=== PATIENT | female | born 1950 | race Caucasian/White ===

== ENCOUNTER → 2016-12-12 | Outpatient (CLI) | payer BC ==
[~2016-12-12] MED LIST: NAPR-1169 PO; TRAMADOL PO
--- NOTE | 2016-12-12 15:18 | MAMMOGRAPHY REPORT ---
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 However, the biopsy marker clip did not align with the original asymmetry in question. TECHNIQUE: Right breast tomosynthesis in addition to standard 2D mammography was performed. Current study was also evaluated with a Computer Aided Detection (CAD) system. COMPARISON: Comparison is made to exams dated: 06/27/2016 ultrasound biopsy, 06/27/2016 mammogram, 06/13/2016 mammogram, 05/24/2016 mammogram, 06/13/2016 ultrasound, and 05/21/2015 mammogram - [facility]. BREAST COMPOSITION: There are scattered areas of fibroglandular density in the right breast. FINDINGS: There is a ribbon shaped metallic biopsy marker in the upper outer posterior right breast. The nodular asymmetry in the lateral posterior right breast, within the retropatellar fat is less prominent comparing to the 05/24/2016 mammogram. Currently, the appearance of the less prominent as ymmetry is very similar to the 2012 mammogram, suggesting benignity. No new suspicious mass, luis ectural distortion or cluster of microcalcifications is seen. Would recommend follow-up at time of next annual screening mammogram (2016). IMPRESSION: ACR BI-RADS CATEGORY 2: BENIGN Decreased prominence of an asymmetry in the lateral, posterior right breast, which appears very ancho lar to the 2012 mammogram. With nearly 5 years of stability this confirms benignity. There is no m ammographic evidence of malignancy in the right breast. Return to annual mammogram screening schedul e is recommended. The patient has been verbally notified of the results. Approximately 10% of breast cancers are not detected with mammography. A negative mammographic repor t should not delay biopsy if a clinically suggestive mass is present. Ayse Higginbotham M.D. ay/:12/12/2016 09:56:48 Instrument And Control Service Person: Natasha ROSENBERG(Tu)(Tana), [facility] letter sent: Normal 1/2 BI-RADS Code: ACR BI-RADS Category 2: Benign
== END | disposition home or self-care (01) ==
LOC: C.MAMM 08:44
PROVIDERS: ATTEND Family Medicine
DX: Z09 Encounter for follow-up examination after completed treatment for conditions other than malignant neoplasm (principal); R92.8 Other abnormal and inconclusive findings on diagnostic imaging of breast

== ENCOUNTER → 2017-05-30 | Outpatient (CLI) | payer BC ==
--- NOTE | 2017-05-31 12:30 | MAMMOGRAPHY REPORT ---
BILATERAL DIGITAL SCREENING MAMMOGRAM TOMOSYNTHESIS WITH CAD: 05/30/2017 CLINICAL HISTORY: Routine screening. Patient has no complaints. TECHNIQUE: Breast tomosynthesis in addition to standard 2D mammography was performed. Current study was also evaluated with a Computer Aided Detection (CAD) system. COMPARISON: Comparison is made to exams dated: 12/12/2016 mammogram, 05/24/2016 mammogram, 05/21/2015 m ammogram, 03/16/2014 mammogram, 03/13/2013 mammogram, and 02/28/2012 mammogram - [facility] enter. BREAST COMPOSITION: There are scattered areas of fibroglandular density in both breasts. FINDINGS: No suspicious masses, calcifications, or areas of architectural distortion are noted in ei ther breast. There has been no significant interval change compared to prior exams. A biopsy marker clip is again noted in the right upper outer quadrant. IMPRESSION: ACR BI-RADS CATEGORY 2: BENIGN There is no mammographic evidence of malignancy. A 1 year screening mammogram is recommended. The pa tient will receive written notification of the results. Approximately 10% of breast cancers are not detected with mammography. A negative mammographic report should not delay biopsy if a clinically suggestive mass is present. Jenny Rae M.D. /:05/31/2017 07:41:02 Customer Solutions Representative: Verenice LOPEZ)(M), [facility] letter sent: Normal 1/2 BI-RADS Code: ACR BI-RADS Category 2: Benign
== END | disposition home or self-care (01) ==
LOC: C.MAMM 16:55
PROVIDERS: ATTEND Family Medicine
DX: Z12.31 Encounter for screening mammogram for malignant neoplasm of breast (principal)